=== PATIENT | male | born 1975 | race Caucasian/White ===

== ENCOUNTER 2024-10-07 15:09 | Emergency (ER) | payer SELFPAY ==
[2024-10-07 15:11] VITALS: BP 100/76; PULSE 126; RESP 28; TEMP 36.5; O2SAT 95; BMI 41.8
[2024-10-07] MEDS: 0.9% Normal Saline (1000mL) 1,000 ML 999 ML IV (15:42)
[2024-10-07 15:53] LABS: Hematocrit 45.7 % (40-54); Hemoglobin 16.7 g/dL (13.0-16.5); Immature Granulocytes Count 0.280 X10^3/uL (0.0-0.0); Mean Corp Hgb Conc 36.5 g/dL (32-36); Mean Corpuscular Volume 86.9 fL (80-94); Mean Platelet Vol. 10.0 fl (6.2-12.0); NRBC Flagged by Analyzer 0 % (0-5); Platelet Count 249 K/mm3 (150-450); RBC Distribution Width CV 14.1 % (11.6-14.6); RBC Distribution Width SD 43.2 fl (35.1-43.9); Red Blood Count 5.26 M/mm3 (4.6-6.2); White Blood Count 22.6 K/mm3 (4.4-11.0)
[2024-10-07 16:39] LABS: AST(SGOT) 35 U/L (<=37); Alanine Aminotransfer ALT/SGPT 31 U/L (<=46); Albumin, Serum 4.6 g/dL (3.5-5.0); Alkaline Phosphatase 124 U/L (40-129); Anion Gap 20 (5-15); BUN 8 mg/dL (4-19); BUN/Creat Ratio 6.0 RATIO (10-20); Bilirubin, Direct 0.72 mg/dL (0.00-0.30); Calcium,Total 9.4 mg/dL (7.6-11.0); Carbon Dioxide 18.0 mmol/L (21.0-32.0); Chloride 102 mmol/L (98-108); Estimated Creatinine Clearance 92.97 ml/min (50-250); Globulin 3.3 g/dL (2.2-4.2); Glucose 273 mg/dL (70-99); Potassium 3.9 mmol/L (3.3-5.1)
[2024-10-07 17:10] VITALS: BP 104/78; PULSE 64; RESP 18; O2SAT 99
[2024-10-07] MEDS: HYDROmorphone 0.5 MG/0.5 ML SYRINGE IV (18:43)
[2024-10-07 19:00] VITALS: BP 98/76; PULSE 108; RESP 18; O2SAT 99
[2024-10-07 19:33] VITALS: BP 112/66; PULSE 107; RESP 19; TEMP 37.2; O2SAT 100
== END 2024-10-07 19:56 | disposition other institution (70) ==
PROVIDERS: Emergency Provider Emergency Medicine; Visit Provider Emergency Medicine
DX: S27.2XXA Traumatic hemopneumothorax, initial encounter (principal); M25.511 Pain in right shoulder; V86.09XA Driver of other special all-terrain or other off-road motor vehicle injured in traffic accident, initial encounter; S22.41XA Multiple fractures of ribs, right side, initial encounter for closed fracture
CPT/HCPCS: 71260; 73030; 74177; 80048; 80076; 85025; 93005; 96361; 96374; 96375; 96376; 99283; Q9967; A4216; J2405